=== PATIENT | male | born 1995 | race African-American/Black ===

== ENCOUNTER 2016-10-08 10:58 | Emergency (ER) | payer SELFPAY ==
[~2016-10-08] VITALS: Wt 81.6 kg
--- NOTE | ~2016-10-08 | EKG ---
[place], [place] ELECTROCARDIOGRAM REPORT NAME: IFEANYI LOPEZ UNIT #: [id number] ROOM: DOCTOR: JESSICA ROBERTSON MD BIRTHDATE: [birth year] DOS: 10/08/2016 TIME: 11:31 am. Sinus rhythm at rate of 63. Normal EKG. JESSICA ROBERTSON MD CM:EKGRPT:ELECTROCARDIOGRAM REPORT [id number] JESSICA ROBERTSON MD
[2016-10-08 11:22] LABS: BASO % 0.5 % (0.0-1.0); EOS # 0.1 10*3/uL (0.0-0.4); EOS % 1.2 % (1.0-4.0); HEMATOCRIT 45.1 % (42.0-52.0); HEMOGLOBIN 15.1 g/dl (14.0-18.0); LYMPH # 2.2 10*3/uL (1.3-4.4); MEAN CELL VOLUME 84.3 fl (80.0-94.0); MEAN CORPUSCULAR HGB 28.2 pg (27.0-31.0); MEAN CORPUSCULAR HGB CONC 33.5 g/dl (33.0-37.0); MONO # 0.4 10*3/uL (0.1-1.0); MONO % 10.9 % (3.0-9.0); NEUT # 1.4 10*3/uL (2.3-7.9); NEUT % 33.4 % (47.0-73.0); PLATELET COUNT AUTOMATED 222 10*3/uL (130-400); RED BLOOD COUNT 5.35 10*6/uL (4.50-5.90); RED CELL DISTRI WIDTH 12.8 % (0-14.5)
[2016-10-08 11:29] LABS: INTERNATIONAL NORM RATIO 1.1 (2.0-3.5); PROTHROMBIN TIME 11.3 SECONDS (9.0-12.4)
[2016-10-08 11:38] LABS: ALBUMIN 4.3 gm/dl (3.1-4.5); BILIRUBIN, TOTAL 0.4 mg/dl (0.2-1.0); BUN 15 mg/dl (7-24); CARBON DIOXIDE 29 mmol/L (21-32); CHLORIDE 104 mmol/L (98-107); EST GLOM FILT AFRICAN AMERICAN > 60 ml/min; GLUCOSE 94 mg/dL (65-99); POTASSIUM 4.2 mmol/L (3.5-5.1); SGOT/AST 9 IU/L (3-35); SGPT/ALT 22 U/L (12-78); SODIUM 140 mmol/L (136-145); TOTAL PROTEIN 8.2 gm/dL (6.4-8.2)
[2016-10-08 11:39] LABS: ALKALINE PHOSPHATASE 55 U/L (45-117); TROPONIN I < 0.015 ng/ml (<0.045)
[2016-10-08] MEDS ORDERED: NAPROSYN500 MG PO (12:54)
== END 2016-10-08 13:57 | disposition home or self-care (01) ==
LOC: ED 10:58
PROVIDERS: Nurse Practitioner Family
DX: R09.1 Pleurisy (principal)

== ENCOUNTER 2017-05-23 10:09 | Emergency (ER) | payer OTHER ==
[~2017-05-23] VITALS: Wt 81.6 kg
[~2017-05-23 10:09] MED LIST: NAPROSYN500 MG PO
[2017-05-23] MEDS ORDERED: NAPROSYN500 MG PO (10:26)
== END 2017-05-23 11:39 | disposition home or self-care (01) ==
LOC: ED 10:09
DX: S63.502A Unspecified sprain of left wrist, initial encounter (principal); F10.10 Alcohol abuse, uncomplicated; X50.9XXA Other and unspecified overexertion or strenuous movements or postures, initial encounter; Y93.89 Activity, other specified; Y92.89 Other specified places as the place of occurrence of the external cause; Y99.0 Civilian activity done for income or pay

== ENCOUNTER 2017-05-25 21:04 | Emergency (ER) | payer OTHER ==
[~2017-05-25] VITALS: Ht 187.9 cm; Wt 81.6 kg
== END 2017-05-25 23:40 | disposition home or self-care (01) ==
LOC: ED 21:04
DX: M79.642 Pain in left hand (principal); M54.2 Cervicalgia; F10.10 Alcohol abuse, uncomplicated; V89.2XXA Person injured in unspecified motor-vehicle accident, traffic, initial encounter; Y93.89 Activity, other specified; Y92.89 Other specified places as the place of occurrence of the external cause; Y99.8 Other external cause status

== ENCOUNTER 2017-09-18 12:51 | Emergency (ER) | payer SELFPAY ==
[~2017-09-18] VITALS: Ht 182.8 cm; Wt 76.2 kg
[2017-09-18] MEDS ORDERED: ZITHROMAX250 MG PO (14:38)
[2017-09-18] MEDS ORDERED: PROAIR HFA8.5 GM INH (14:38)
== END 2017-09-18 14:44 | disposition home or self-care (01) ==
LOC: ED 12:51
DX: J18.1 Lobar pneumonia, unspecified organism (principal)

== ENCOUNTER 2022-08-21 19:21 | Emergency (ER) | payer OTHER ==
[~2022-08-21] VITALS: Ht 187.9 cm; Wt 81.6 kg
[~2022-08-21 19:21] MED LIST changes: +PROAIR HFA8.5 GM INH; +ZITHROMAX250 MG PO
== END 2022-08-21 20:05 | disposition home or self-care (01) ==
LOC: ED 19:21
DX: R51.9 Headache, unspecified (principal)

== ENCOUNTER → 2022-10-26 | Outpatient (CLI) | payer OTHER | LOC: MRI 08:00 | PROVIDERS: ATTEND Podiatrist Foot & Ankle Surgery | DX: M20.21 Hallux rigidus, right foot (principal) ==

== ENCOUNTER 2024-07-05 10:40 | Emergency (ER) | payer OTHER ==
[~2024-07-05] VITALS: Ht 187.9 cm; Wt 73.5 kg
[2024-07-05] MEDS ORDERED: Acetaminophen/Oxycodone 5 MG/325 MG TABLET PO ONE (10:55)
== END 2024-07-05 11:37 | disposition home or self-care (01) ==
LOC: ED 10:40
DX: S43.401A Unspecified sprain of right shoulder joint, initial encounter (principal); X58.XXXA Exposure to other specified factors, initial encounter; Y93.67 Activity, basketball; Y92.320 Baseball field as the place of occurrence of the external cause; Y99.8 Other external cause status